=== PATIENT | female | born 1985 | race Caucasian/White ===

== ENCOUNTER → 2017-03-28 | Outpatient (CLI) | payer OTHER ==
[~2017-03-28] MED LIST: ACET50TA PO; ADVI200C5 PO; DOCU10CA PO; VITAPRTA PO
--- NOTE | 2017-03-29 10:00 | REP ---
Clinical: Dating and viability. Technique: Transabdominal first trimester obstetrical ultrasound with color Doppler evaluation. Findings: Single live early intrauterine is appreciated. Gestational sac with yolk sac and pole identified. [place]-rump length of 3.1 cm corresponds to 10 weeks 0 days gestational age with estimated date of delivery 10/24/2017 . heart rate equals 168 beats per minute. No gross abnormalities are identified. Impression: Single live early intrauterine at 10 weeks 0 days gestational age. Complete anatomical assessment should be performed and 19-20 weeks. Signed by Turner Lundberg MD 03/29/2017 09:51 A
== END ==
LOC: M RAD 10:25
PROVIDERS: ATTEND Family Medicine
DX: Z36.89 Encounter for other specified antenatal screening (principal); Z3A.10 10 weeks gestation of pregnancy

== ENCOUNTER → 2017-04-12 | Outpatient (REF) | payer OTHER ==
[2017-04-12 17:28] LABS: BASO % 0.3 % (0.0-1.0); EOS # 0.1 10^3/uL (0.0-0.50); EOS % 0.6 % (0.0-3.0); IMMATURE GRANULOCYTE % 0.6 % (0-0); LYMPH # 1.5 10^3/uL (1.5-4.5); LYMPH % 16.6 % (24.0-44.0); MEAN CORPUSCULAR HEMOGLOBIN 31.3 pg (27.0-33.0); MEAN CORPUSCULAR HGB CONC 33.3 g/dl (32.0-36.5); MEAN CORPUSCULAR VOLUME 93.9 fl (80.0-96.0); MONO # 0.5 10^3/uL (0.0-0.8); NEUTROPHILS % 76.9 % (36.0-66.0); PLATELET COUNT, AUTOMATED 212 10^3/uL (150-450); RED CELL DISTRIBUTION WIDTH 12.4 % (11.5-14.5)
[2017-04-12 18:31] LABS: GLUCOSE,RANDOM 102 MG/DL (LESS THAN 200)
[2017-04-13 10:36] LABS: HBsAg Prenatal NEGATIVE (NEGATIVE)
== END ==
LOC: M SFHCCLAY 10:31
PROVIDERS: ATTEND Family Medicine
DX: Z34.00 Encounter for supervision of normal first pregnancy, unspecified trimester (principal); Z3A.00 Weeks of gestation of pregnancy not specified

== ENCOUNTER → 2017-06-04 | Outpatient (CLI) | payer MEDICAID ==
--- NOTE | 2017-06-04 12:01 | REP ---
Obstetric sonography: History: Supervision of second trimester. For anatomy. Comparison study: March 28, 2017. Findings: Scanning through the gravid uterus demonstrates a viable single intrauterine gestation in a cephalic lie. motion is observed and heart rate is recorded at 144 beats per minute. A posterior grade 0 placenta is seen without evidence of previa or abruption. Amniotic fluid is subjectively normal. Closed cervical length is 5.8 cm viewed transabdominally. No extrauterine abnormality is observed. There has been appropriate interval growth. No anomaly is seen. The following anatomic structures are identified and felt to be sonographically unremarkable: cranium, choroid plexus, cavum, cerebellum and posterior fossa, face and profile, lungs, four-chamber heart with left and right ventricular outflow tract views, diaphragm, left-sided stomach, abdominal wall cord insertion, three-vessel umbilical cord, kidneys and bladder, spine, upper and lower extremities. Biometry chart: BPD 4.9 cm 20 weeks 6 days Head circumference 17.4 cm 20 weeks 0 days Abdominal circumference 15.1 cm 20 weeks 2 days Femur length 3.0 cm 19 weeks 2 days Humeral length 2.8 cm 19 weeks 0 days Cerebellar diameter 2.1 cm 20 weeks 0 days. HC/AC ratio normal 1.15. Cephalic index normal 0.80. Estimated weight 319 grams, 0 pounds 11 ounces, 57th percentile for 19 weeks 4 days. Impression: Viable single intrauterine gestation at 19 weeks 6 days by today's composite sonographic criteria. Expected gestational age estimate based on prior sonography is 19 weeks 5 days. EUNICE by prior sonography October 24, 2017. No anatomic abnormality. Signed by Jorge Thomas MD 06/04/2017 04:11 P
== END ==
LOC: M RAD 08:20
PROVIDERS: ATTEND Family Medicine
DX: Z34.92 Encounter for supervision of normal pregnancy, unspecified, second trimester (principal); Z3A.19 19 weeks gestation of pregnancy

== ENCOUNTER → 2017-07-12 | Outpatient (REF) | payer OTHER, MEDICAID ==
[2017-07-12 22:02] LABS: HEMATOCRIT 33.1 % (36.0-47.0); HEMOGLOBIN 10.8 g/dl (12.0-16.0)
[2017-07-12 22:21] LABS: GLUCOSE CHALLENGE TEST 1 HOUR 167 MG/DL (LESS THAN 140)
== END ==
LOC: M SFHCCLAY 12:13
DX: Z34.92 Encounter for supervision of normal pregnancy, unspecified, second trimester (principal)
CPT/HCPCS: 82950

== ENCOUNTER → 2017-07-30 | Outpatient (CLI) | payer MEDICAID ==
[2017-07-30 08:20] LABS: GLUCOSE, FASTING 74 MG/DL (LESS THAN 95)
[2017-07-30 08:37] LABS: 1 HR GLUCOSE 161 MG/DL (LESS THAN 180)
[2017-07-30 09:57] LABS: 2 HR GLUCOSE 101 MG/DL (LESS THAN 155)
[2017-07-30 10:46] LABS: 3 HR GLUCOSE 99 MG/DL (LESS THAN 140)
== END ==
LOC: M LAB 06:51
DX: Z36.89 Encounter for other specified antenatal screening (principal); Z3A.00 Weeks of gestation of pregnancy not specified
CPT/HCPCS: 82951

== ENCOUNTER → 2017-08-09 | Outpatient (REF) | payer OTHER, SELFPAY ==
[2017-08-10 10:36] LABS: HIV 1&2 SCREEN CENTAUR NEGATIVE (NEGATIVE)
== END ==
LOC: M LABDRAWC 16:49
DX: Z34.82 Encounter for supervision of other normal pregnancy, second trimester (principal); Z3A.00 Weeks of gestation of pregnancy not specified
CPT/HCPCS: 86803

== ENCOUNTER → 2017-08-24 | Outpatient (CLI) | payer OTHER, MEDICAID ==
[2017-08-24 14:01] LABS: ALBUMIN/GLOBULIN RATIO 0.86 (1.00-1.93); ALKALINE PHOSPHATASE 91 U/L (45-117); ALT/SGPT 14 U/L (12-78); AST/SGOT 20 U/L (7-37); BILIRUBIN,DIRECT < 0.1 MG/DL (0.0-0.2); BILIRUBIN,TOTAL 0.4 MG/DL (0.2-1.0); TOTAL PROTEIN 6.5 GM/DL (6.4-8.2)
[2017-08-27 14:11] LABS: BILE ACIDS FRACTIONATED 6.8 umol/L (4.7-24.5)
== END ==
LOC: M SMT 09:47
DX: Z23 Encounter for immunization (principal); R21 Rash and other nonspecific skin eruption
CPT/HCPCS: 80076

== ENCOUNTER → 2017-09-28 | Outpatient (REF) | payer OTHER | LOC: M LAB REF 17:13 | DX: Z34.83 Encounter for supervision of other normal pregnancy, third trimester (principal) ==

== ENCOUNTER 2017-10-31 11:57 | Inpatient (IN) | payer OTHER ==
[2017-10-31] MEDS ORDERED: LR 1,000 ML IV (12:19)
[2017-10-31] MEDS ORDERED: OXYTOCIN DRIP 30 UNITS in APPROPRIATE DILUENT 1 EA IV (12:30)
[2017-10-31] MEDS: miSOPROStol 50 MCG 1/2 TAB (S0191) PO (13:08)
[2017-10-31 13:30] LABS: HEMATOCRIT 33.8 % (36.0-47.0); HEMOGLOBIN 11.6 g/dl (12.0-15.5); MEAN CORPUSCULAR HGB CONC 34.3 g/dl (32.0-36.5); MEAN CORPUSCULAR VOLUME 93.4 fl (80.0-96.0); PLATELET COUNT, AUTOMATED 166 10^3/uL (150-450); RED BLOOD COUNT 3.62 10^6/uL (4.00-5.40); RED CELL DISTRIBUTION WIDTH 13.6 % (11.5-14.5); WHITE BLOOD COUNT 8.6 10^3/uL (4.0-10.0)
[2017-10-31] MEDS: LACTATED RINGER'S 1000 ML IV (14:18)
[2017-10-31] MEDS: LR 1,000 ML IV (18:12)
[2017-10-31] MEDS ORDERED: FENTANYL 2MCG/ML ROPIVACAINE 0.2% IN 0.9% NACL 200ML IVBAG As Ordered (18:46)
[2017-10-31] MEDS: OXYTOCIN DRIP 30 UNITS in APPROPRIATE DILUENT 1 EA IV ×2 (18:46→21:37)
[2017-10-31] MEDS ORDERED: diphenhydrAMINE INJ 50MG/ML VIAL (J1200) IV (19:00)
[2017-10-31] MEDS ORDERED: NALOXONE INJ 0.4 MG/1 ML VIAL (J2310) IV (19:00)
[2017-10-31] MEDS ORDERED: FENTANYL/ROPIVACAINE/NACL BAG 200 ML EPIDURAL (19:00)
[2017-10-31] MEDS ORDERED: ePHEDrine SULFATE 25 MG/5 ML(5MG/ML) SYRINGE IV (19:00)
[2017-10-31] MEDS ORDERED: EPIDURAL/PCA KEYS XX (19:00)
[2017-10-31] MEDS ORDERED: EPIDURAL COMMENT XX (19:00)
[2017-10-31] MEDS ORDERED: REFRIGERATOR IV KEYS XX (19:00)
[2017-10-31] MEDS ORDERED: ONDANSETRON 4MG/2ML VIAL (J2405) IV (19:00)
[2017-10-31] MEDS ORDERED: LACTATED RINGER'S 1000 ML IV (19:00)
[2017-10-31 20:19] LABS: CORD GAS ABE V -4.4; CORD GAS HCO3 V 20.8 MEQ/L; CORD GAS O2 SAT V 62.7 %; CORD GAS PCO2 V 38.6 mmHg; CORD GAS PH V 7.349 UNITS; CORD GAS SBC V 20.1 MEQ/L
[2017-10-31 20:21] LABS: CORD GAS ABE A -4.6; CORD GAS O2 SAT A 83.4 %; CORD GAS PCO2 A 40.6 mmHg; CORD GAS PH A 7.331 UNITS; CORD GAS PO2 A 43.3 mmHg; CORD GAS SBC A 20.4 MEQ/L; CORD GAS TCO2 A 22.2 MEQ/L
[2017-10-31] MEDS ORDERED: MOM 30ML SUSPENSION UDC PO (21:30)
[2017-10-31] MEDS ORDERED: ANUSOL HC CREAM 30GM TOP (21:30)
[2017-10-31] MEDS ORDERED: DOCUSATE SODIUM 100 MG CAP PO (21:30)
[2017-10-31] MEDS ORDERED: DIBUCAINE 1% OINTMENT 30GM TOP (21:30)
[2017-10-31] MEDS ORDERED: PROMETHAZINE 25 MG TAB PO (21:30)
[2017-10-31] MEDS ORDERED: METHYLERGONOVINE MALEATE 0.2 MG TAB PO (21:30)
[2017-10-31] MEDS: CALCIUM CARBONATE 500 MG CHEW U/D PO (21:37)
[2017-10-31] MEDS: ACETAMINOPHEN 500 MG TAB PO (21:38)
[2017-10-31] MEDS: IBUPROFEN 800 MG TAB PO (23:37)
[2017-11-01] MEDS: ACETAMINOPHEN 500 MG TAB PO ×2 (05:35→14:57)
[2017-11-01] MEDS: MEASLES,MUMPS,RUBELLA VACCINE INJ (MMR-II) (90707) SC (07:29)
[2017-11-01] MEDS: RHOGAM 300 MCG (1500 IU) INJ (J2790) IM (07:29)
[2017-11-01] MEDS: PRENATAL VITAMINS CHEWABLE TABLET PO (09:01)
[2017-11-01] MEDS: IBUPROFEN 800 MG TAB PO ×2 (09:02→20:20)
[2017-11-02] MEDS: PRENATAL VITAMINS CHEWABLE TABLET PO (08:04)
[2017-11-02] MEDS: IBUPROFEN 800 MG TAB PO (08:06)
== END 2017-11-02 16:30 | disposition home or self-care (01) | DRG 560 ==
LOC: M LDI 11:57 → M OBS 11-01 00:05
PROVIDERS: Obstetrics & Gynecology
PROC: 10D07Z6 Extraction of Products of Conception, Vacuum, Via Natural or Artificial Opening (ICD-10-PCS; principal; 2017-10-31)
PROC: 0HQ9XZZ Repair Perineum Skin, External Approach (ICD-10-PCS; 2017-10-31)
PROC: 3E0DXGC Introduction of Other Therapeutic Substance into Mouth and Pharynx, External Approach (ICD-10-PCS; 2017-10-31)
DX: O48.0 Post-term pregnancy (principal); O76 Abnormality in fetal heart rate and rhythm complicating labor and delivery; Z37.0 Single live birth; Z3A.40 40 weeks gestation of pregnancy; O70.0 First degree perineal laceration during delivery; O69.1XX0 Labor and delivery complicated by cord around neck, with compression, not applicable or unspecified

== ENCOUNTER → 2019-10-10 | Outpatient (REF) | payer OTHER ==
[~2019-10-10] MED LIST changes: -ACET50TA PO; +COLA100C5 PO; +FERR325T3 PO; +IBUP-1022 PO; +MAPA500T2 PO; +MOM30SS PO; +PEDICHW PO; +RANI-397 PO; +TUMS500C PO
[2019-10-10 13:20] LABS: HEMATOCRIT 38.6 % (36.0-47.0); HEMOGLOBIN 12.4 g/dl (12.0-15.5); MEAN CORPUSCULAR HGB CONC 32.1 g/dl (32.0-36.5); MEAN CORPUSCULAR VOLUME 96.5 fl (80.0-96.0); PLATELET COUNT, AUTOMATED 211 10^3/uL (150-450); WHITE BLOOD COUNT 5.4 10^3/uL (4.0-10.0)
== END ==
LOC: M PLALAB 11:15
PROVIDERS: ATTEND Advanced Practice Midwife
DX: R53.83 Other fatigue (principal)

== ENCOUNTER → 2019-11-28 | Outpatient (REF) | payer OTHER | LOC: M SFHCWAGY 11:06 | PROVIDERS: ATTEND Obstetrics & Gynecology | DX: R87.612 Low grade squamous intraepithelial lesion on cytologic smear of cervix (LGSIL) (principal) ==

== ENCOUNTER → 2020-10-15 | Outpatient (REF) | payer OTHER ==
[2020-10-15 12:19] LABS: HEMATOCRIT 33.3 % (36.0-47.0); HEMOGLOBIN 10.8 g/dl (12.0-15.5); MEAN CORPUSCULAR HEMOGLOBIN 31.3 pg (27.0-33.0); MEAN CORPUSCULAR HGB CONC 32.4 g/dl (32.0-36.5); MEAN CORPUSCULAR VOLUME 96.5 fl (80.0-96.0); PLATELET COUNT, AUTOMATED 185 10^3/uL (150-450); RED BLOOD COUNT 3.45 10^6/uL (4.00-5.40); WHITE BLOOD COUNT 6.9 10^3/uL (4.0-10.0)
[2020-10-15 13:34] LABS: HIV 1&2 SCREEN CENTAUR NEGATIVE (NEGATIVE)
== END ==
LOC: M PLALAB 08:59
PROVIDERS: ATTEND Advanced Practice Midwife
DX: O09.511 Supervision of elderly primigravida, first trimester (principal)

== ENCOUNTER → 2020-12-08 | Outpatient (CLI) | payer OTHER ==
--- NOTE | 2020-12-08 15:13 | REP ---
INDICATION: ANATOMY 18 WEEKS. COMPARISON: None. TECHNIQUE: Transabdominal obstetric sonography. FINDINGS: Scanning through the gravid uterus demonstrates a viable single intrauterine gestation in variable lie. motion is observed and heart rate is recorded at 152 beats per minute. A posterior placenta is seen, grade 0, without evidence of placenta previa. Closed cervical length is measured at 5.5 cm transabdominally. No extrauterine abnormality is observed. Amniotic fluid is subjectively normal. No abnormality is observed. The following anatomic structures are identified felt to be unremarkable: cranium and intracranial contents, face and profile nose and lips, lungs, diaphragm, left-sided stomach, abdominal wall cord insertion, urinary bladder, spine, right and left upper extremity, right lower extremity, left lower extremity, three-vessel cord. The following anatomic structures were less than optimally visualized due to position: Four-chamber heart with left and right ventricular outflow tract views. Biometry chart: BPD 4.1 cm, 18 weeks 4 days Head circumference 15.0 cm, 18 weeks 1 day Abdominal circumference 13.3 cm, 18 weeks 6 days Femur length 2.7 cm, 18 weeks 1 day Humeral length 2.6 cm, 18 weeks 1 day Cephalic index normal 0.77 HC AC ratio normal 1.13 Estimated weight 241 g, 0 lb 8 oz, 31st percentile for 18 weeks 5 days. IMPRESSION: Viable single intrauterine gestation at 18 weeks 2 days by today's composite sonographic criteria. EUNICE by today's sonography 09 May 2021. No complication identified. Four-chamber heart and outflow tract views less than optimally achieved. anatomy survey otherwise complete . <Electronically signed by Rober Thomas > 12/08/20 [id number]
== END ==
LOC: M RAD 12:06
PROVIDERS: ATTEND Advanced Practice Midwife
DX: Z36.89 Encounter for other specified antenatal screening (principal); Z3A.18 18 weeks gestation of pregnancy

== ENCOUNTER → 2021-01-20 | Outpatient (CLI) | payer OTHER ==
--- NOTE | 2021-01-20 08:52 | REP ---
INDICATION: F/U ANATOMY. COMPARISON: 12/08/2020. TECHNIQUE: Multiple ultrasonographic images of the gravid uterus. FINDINGS: The comparison study the four-chamber view of the heart and cardiac right and left outflow tracts were not optimally visualized. The anatomy was otherwise normal. On the study today the four-chamber view of the heart and right and left cardiac outflow tracts are optimally visualized and are unremarkable. The remainder of the anatomy previously was normal and is not repeated at this time. There is a single intrauterine gestation in a cephalic presentation. The placenta is posterior with grade 1 maturity. There is no previa. The umbilical cord inserts centrally on to the placenta. There is a three-vessel cord. heart rate is 142 beats per minute. Subjectively the amniotic fluid volume is increased. No amniotic fluid index measurement is performed. Cervix measures 4.1 cm length. The composite ultrasound as gestational age by today's ultrasound is 25 weeks 1 day with an EUNICE of 05/04/2021. Gestational age by the 1st ultrasound is 24 weeks 6 days with an EUNICE of 05/06/2021. Gestational age by LMP is 24 weeks 6 days with an EUNICE of 05/06/2021. Estimated weight is 781 g/1 lb, 11 oz. This is the 53rd percentile for 24 weeks 6 days. Neck Review of growth grafts indicates normal interval growth. IMPRESSION: The four-chamber view of the car heart in the cardiac right left ventricular outflow tracts are adequately visualized today and are unremarkable. There has been adequate interval growth. <Electronically signed by Costa Fan > 01/20/21 [id number]
== END ==
LOC: M WHC 06:57
PROVIDERS: ATTEND Advanced Practice Midwife
DX: Z34.92 Encounter for supervision of normal pregnancy, unspecified, second trimester (principal); Z3A.25 25 weeks gestation of pregnancy

== ENCOUNTER → 2021-01-28 | Outpatient (CLI) | payer OTHER ==
[2021-01-28 13:17] LABS: HEMATOCRIT 31.9 % (36.0-47.0); HEMOGLOBIN 10.4 g/dl (12.0-15.5); MEAN CORPUSCULAR HEMOGLOBIN 32.6 pg (27.0-33.0); MEAN CORPUSCULAR HGB CONC 32.6 g/dl (32.0-36.5); PLATELET COUNT, AUTOMATED 180 10^3/uL (150-450); RED BLOOD COUNT 3.19 10^6/uL (4.00-5.40)
== END ==
LOC: M PLALAB 09:33
PROVIDERS: ATTEND Advanced Practice Midwife
DX: Z34.92 Encounter for supervision of normal pregnancy, unspecified, second trimester (principal)

== ENCOUNTER → 2021-04-07 | Outpatient (REF) | payer OTHER | LOC: M SFHCWAGY 10:03 | PROVIDERS: ATTEND Obstetrics & Gynecology | DX: Z36.85 Encounter for antenatal screening for Streptococcus B (principal); Z3A.35 35 weeks gestation of pregnancy ==

== ENCOUNTER → 2021-04-29 | Outpatient (CLI) | payer OTHER ==
--- NOTE | 2021-04-29 11:25 | REP ---
INDICATION: GROWTH SIZE DATE DISCREPANCY. COMPARISON: 01/20/2021, 12/08/2020 TECHNIQUE: Size date discrepancy, evaluate growth. FINDINGS: Scanning demonstrates a viable single intrauterine gestation in a cephalic lie. motion is observed and heart rate is recorded at 125 beats per minute. A posterior, grade 2 placenta is seen without evidence of previa. Amniotic fluid is increased. The EVAN is 29.3 (7.2-22.6). The 4 pockets measure 8.7, 7.5, 8.1 and 5 cm. This represents polyhydramnios. Closed cervical length is measured at 5.8 cm transabdominally. No extrauterine abnormality is observed. There has been appropriate interval growth. No anatomic screening is requested or performed. Biometry chart: BPD 9.8 cm; 40 weeks 0 days Head circumference 34.6 cm; 40 weeks 0 days Abdominal circumference 36 cm; 30 weeks 6 days Femur length 7.5 cm; 38 weeks 1 days Humeral length 6.8 cm; 39 weeks 2 days HC/AC ratio normal 0.96 Cephalic index normal 0.81 Estimated weight 3829 grams, 8 pounds 7 ounces, 82 percentile for 39 weeks 0 days. IMPRESSION: Viable single intrauterine gestation at 39 weeks 3 days by today's composite sonographic criteria. Expected gestational age estimate based on prior sonography is 39 weeks is 0 days. EUNICE by prior sonography 05/06/2021. There is polyhydramnios with EVAN 29.3 (7.2-22.6 normal) largest fluid pocket 8.7 cm. <Electronically signed by Quentin Fox > 04/29/21 [id number]
== END ==
LOC: M WHC 09:57
PROVIDERS: ATTEND Advanced Practice Midwife
DX: Z36.4 Encounter for antenatal screening for fetal growth retardation (principal); O26.843 Uterine size-date discrepancy, third trimester; Z3A.39 39 weeks gestation of pregnancy

== ENCOUNTER 2021-05-02 00:05 | Inpatient (IN) | payer OTHER ==
[2021-05-02] VITALS (9 sets, daily range): BP systolic 97–111; BP diastolic 53–62
[~2021-05-02] VITALS: Ht 170.2 cm; Wt 78.2 kg
[2021-05-02] MEDS ORDERED: LACTATED RINGER'S 1000 ML IV STA (00:43)
[2021-05-02] MEDS ORDERED: LR 1,000 ML IV SCH (00:45)
--- OUTSIDE RECORDS SUMMARY | 2021-05-02 00:50 | CCD ---
Author Author [facility] Organization [facility] Address Unknown Phone Unavailable Care Team Providers Care Application Support Lead Name Role Phone Symonelandon Nancy Unavailable PROBLEMS Type Condition ICD9-CM Code [id number] Code Onset Dates Condition S tatus W/U Status Risk SNOMED Code Notes Problem Depression F32.9 Active confirmed 32640400 Problem Supervision of other normal Z34.80 Ac tive confirm 870786252 Problem Amenorrhea N91.2 Active confirmed 20412022 Problem Sciatica of left side M54.32 Active confirmed 59174390 Problem Sinusitis, unspecified chronicity, unspecified location J32.9 Active confirmed [id number] ALLERGIES No Known Allergies ENCOUNTERS from 1983 to 2021-03-08 Encounter Location Date Provider Diagnosis [facility] [address] [place] [address] [place] [address] Feb, Nancy Sauceda IMMUNIZATIONS Vaccine Route Administration Date Status Influenza Pharmacy Given Unknown Apr 26, 2020 Adminis tered TDAP 0.5mL (Boostrix) Unknown September 06, 2017 Administer ed Influenza 6mo & up Fluzone IM Intramuscular May 01, 2017 Admi nistered Influenza 6mo & up Fluzone IM Intramuscular Apr 01, 2015 Admi nistered SOCIAL HISTORY Tobacco Use: Social History Observation Description Date Details (start date - stop date) Former Smoker Sex Assigned At : Social History Observation Description Sex Assigned At Unknown Education: Question Answer Notes Level of Education: Not Finished College Language: Question Answer Notes Languages spoken: Bulgarian Sikh: Question Answer Notes Sikh 33 None Tobacco Use: Question Answer Notes Are you a: former smoker How long has it been since you last smoked? 5-10 years REASON FOR REFERRAL No Information VITAL SIGNS No information MEDICATIONS Medication SIG (Take, Route, Frequency, Duration) Notes Start Da te End Date Status DHA Complete 200 MG 1 capsule with a meal Orally Once a day Not-Taking busPIRone HCl 10 MG 1 tablet Orally Twice a day for 90 days Jul, Not-Taking Iron 325 (65 Fe) MG 1 tablet Orally Once a day Active busPIRone HCl 5 MG 1 tablet Orally Twice a day for 30 days Sep, Not-Taking Ferrous Gluconate 324 (38 Fe) MG 1 tablet with water o r juice between meals Orally Once a day for 30 day(s) Jan, Active Vitamin - Orally Active Fiber Complete - Orally Active Effexor XR 75 MG 1 capsule with food Orally Once a day for 90 da ys Jul, Not-Taking PROCEDURES No Information RESULTS No Results REASON FOR VISIT CONCHITA APPT MEDICAL (GENERAL) HISTORY Type Description Date Medical History Anemia Medical History Hx of asthma Medical History Hx of post depression Surgical History Colposcopy 2019 Hospitalization History Pneumonia 4yo Hospitalization History childbirth Goals Section No Information Health Concerns No Information MEDICAL EQUIPMENT No Information MENTAL STATUS No Information FUNCTIONAL STATUS No Information ASSESSMENTS No Information PLAN OF TREATMENT Next Appt Details Provider Name:Nancy Sauceda, 2021-02-17 2 09:20:00 AM, [address] [facility], , [place], [address], Insurance Providers Payer Name Payer Address Payer Phone Insured Name Patient Relati onship to Insured Coverage Start Date Coverage End Date [facility] [employer] CLAIMS DEPT [address] [facility] [phone] [place]
--- OUTSIDE RECORDS SUMMARY | 2021-05-02 00:50 | CCD ---
Author Author [facility] Organization [facility] Address Unknown Phone Unavailable Care Team Providers Care Machine Umbrella Tipper Name Role Phone Jasmin Carcamo Unavailable PROBLEMS Type Condition ICD9-CM Code [id number] Code Onset Dates Condition S tatus W/U Status Risk SNOMED Code Notes Problem Depression F32.9 Active confirmed 09056380 Problem Supervision of other normal Z34.80 Ac tive confirm 529655116 Problem Amenorrhea N91.2 Active confirmed 64906136 Problem Sciatica of left side M54.32 Active confirmed 90963512 Problem Sinusitis, unspecified chronicity, unspecified location J32.9 Active confirmed 32423054 ALLERGIES No Known Allergies ENCOUNTERS from 1983 to 2021-02-23 Encounter Location Date Provider Diagnosis [facility] [address] [place] [address] [place] [address] 07 Feb, 2021 Jasmin Carcamo Elderly multigravida in third trimester O09.523 and 29 weeks gestation of Z3A.29 IMMUNIZATIONS Vaccine Route Administration Date Status Influenza [...] College Language: Question Answer Notes Languages spoken: Central African Sabianist: Question Answer Notes Sabianist 33 None Tobacco Use: Question Answer Notes Are you a: former smoker How long has it been since you last smoked? 5-10 years REASON FOR REFERRAL No Information VITAL SIGNS Weight 162.8 lbs Feb, Weight-kg 73.84 kg Feb, Height 67 in Feb, BMI 25.498 kg/m2 Feb, Blood pressure systolic 114 mm Hg Feb, Blood pressure diastolic 66 mm Hg Feb, MEDICATIONS Medication SIG (Take, Route, Frequency, Duration) [...] Information RESULTS No Results REASON FOR VISIT 4WK PN MEDICAL (GENERAL) HISTORY Type Description Date Medical History Anemia Medical History Hx of asthma Medical History Hx of post depression Surgical History Colposcopy 2019 Hospitalization History Pneumonia 4yo Hospitalization History childbirth Goals Section No Information Health Concerns No Information MEDICAL EQUIPMENT No Information MENTAL STATUS No Information FUNCTIONAL STATUS No Information ASSESSMENTS Encounter Date Diagnosis Assessment Notes Treatment Notes Treatm ent Clinical Notes Feb, Elderly multigravida in third trimester (ICD-10 - O09.523) Feb, 29 weeks gestation of (ICD-10 - Z3A.29 ) PLAN OF TREATMENT Next Appt Details 2 Weeks Reason: Provider Name:Jasmin Carcamo, 2021-03-08 0 9:40:00 AM, [address] [facility], , [place], [address], Insurance Providers Payer Name Payer Address Payer Phone Insured Name Patient Relati onship to Insured Coverage Start Date Coverage End Date [facility] CLAIMS DEPT [address] [facility] [phone] [place]
--- OUTSIDE RECORDS SUMMARY | 2021-05-02 00:50 | CCD ---
Author Author [facility] Organization [facility] Address Unknown Phone Unavailable Care Team Providers Care Foiling Machine Operator Name Role Phone Komal Nancy Unavailable PROBLEMS Type Condition ICD9-CM Code [id number] Code Onset Dates Condition S tatus W/U Status Risk SNOMED Code Notes Problem Depression F32.9 Active confirmed 30426032 Problem Supervision of other normal Z34.80 Ac tive confirm 852970326 Problem Amenorrhea N91.2 Active confirmed 32619978 Problem Sciatica of left side M54.32 Active confirmed 72295244 Problem Sinusitis, unspecified chronicity, unspecified location J32.9 Active confirmed 36550571 ALLERGIES No Known Allergies ENCOUNTERS from 1983 to 2021-03-25 Encounter Location Date Provider Diagnosis [facility] [address] [place] [address] [place] [address] Mar, Nancy Sauceda Advanced maternal ag e in multigravida O09.529 and 33 weeks gestation of Z3A.33 IMMUNIZATIONS Vaccine Route Administration Date Status TDAP 0.5mL Boostrix IM Intramuscular Mar 09, 2021 Administere d Influenza Pharmacy Given Unknown Apr 26, 2020 [...] College Language: Question Answer Notes Languages spoken: Vietnamese Worship: Question Answer Notes Worship 33 None Tobacco Use: Question Answer Notes Are you a: former smoker How long has it been since you last smoked? 5-10 years REASON FOR REFERRAL No Information VITAL SIGNS Weight 164.4 lbs Mar, Weight-kg 74.57 kg Mar, Height 67 in Mar, BMI 25.749 kg/m2 Mar, Blood pressure systolic 100 mm Hg Mar, Blood pressure diastolic 60 mm Hg Mar, MEDICATIONS Medication SIG (Take, Route, Frequency, Duration) Notes Start Da te End Date Status Fiber Complete - Orally Active busPIRone HCl 5 MG 1 tablet Orally Twice a day for 30 days Sep, Not-Taking Effexor XR 75 MG 1 capsule with food Orally Once a day for 90 da ys Jul, Not-Taking Iron 325 (65 Fe) MG 1 tablet Orally Once a day Duplicate Not-Taking Vitamin - Orally Active Ferrous Gluconate 324 (38 Fe) MG 1 tablet with water o r juice between meals Orally Once a day for 30 day(s) Jan, Active busPIRone HCl 10 MG 1 tablet Orally Twice a day for 90 days Jul, Not-Taking DHA Complete 200 MG 1 capsule with a meal Orally Once a day Not-Taking PROCEDURES No Information RESULTS No Results REASON FOR VISIT 2 wk pn MEDICAL (GENERAL) HISTORY Type Description Date Medical History Anemia Medical History Hx of asthma Medical History Hx of post depression Surgical History Colposcopy 2019 Hospitalization History Pneumonia 4yo Hospitalization History childbirth Goals Section No Information Health Concerns No Information MEDICAL EQUIPMENT No Information MENTAL STATUS No Information FUNCTIONAL STATUS No Information ASSESSMENTS Encounter Date Diagnosis Assessment Notes Treatment Notes Treatm ent Clinical Notes Mar, 33 weeks gestation of (ICD-10 - Z3A.33 ) Mar, Advanced maternal age in multigravida (ICD-10 - O09.529) PLAN OF TREATMENT Next Appt Details 2-3 weeks Reason: Provider Name:Nancy Sauceda, 2020-10-2 0 08:40:00 AM, [address] [facility], , [place], [address], Provider Name:Jasmin Avila Carlos Alberto, 2021-04-19 1 0:00:00 AM, [address] [facility], , [place], [address], Follow Up:2-3 weeksPrenatal Insurance Providers Payer Name Payer Address Payer Phone Insured Name Patient Relati onship to Insured Coverage Start Date Coverage End Date [facility]POR[facility] CLAIMS DEPT [address] [facility] [phone] K[place]VER REESE
--- OUTSIDE RECORDS SUMMARY | 2021-05-02 00:50 | CCD ---
Author Author [facility] Organization [facility] Address Unknown Phone Unavailable Care Team Providers Care Harbor Tug Captain Name Role Phone Carlos AlbertoJasmin Unavailable PROBLEMS Type Condition ICD9-CM Code [id number] Code Onset Dates Condition S tatus W/U Status Risk SNOMED Code Notes Problem Depression F32.9 Active confirmed 63520861 Problem Supervision of other normal Z34.80 Ac tive confirm 228617509 Problem Amenorrhea N91.2 Active confirmed 93850350 Problem Sciatica of left side M54.32 Active confirmed 40771806 Problem Sinusitis, unspecified chronicity, unspecified location J32.9 Active confirmed 59158807 ALLERGIES No Known Allergies ENCOUNTERS from 1983 to 2021-02-01 Encounter Location Date Provider Diagnosis [facility] [address] [place] [address] [place] [address] 16 Jan, 2021 Jasmin Carcamo IMMUNIZATIONS Vaccine Route Administration Date Status Influenza [...] College Language: Question Answer Notes Languages spoken: Panamanian Restorationist: Question Answer Notes Restorationist 33 None Tobacco Use: Question Answer Notes Are you a: former smoker How long has it been since you last smoked? 5-10 years REASON FOR REFERRAL No Information VITAL SIGNS No information MEDICATIONS Medication SIG (Take, Route, Frequency, Duration) Notes Start Da te End Date Status busPIRone HCl 5 MG 1 tablet Orally Twice a day for 30 days Sep, Not-Taking Vitamin - Orally Active Iron 325 (65 Fe) MG 1 tablet Orally Once a day Active Fiber Complete - Orally Active busPIRone HCl 10 MG 1 tablet Orally Twice a day for 90 days Jul, Not-Taking Effexor XR 75 MG 1 capsule with food Orally Once a day for 90 da ys Jul, Not-Taking Ferrous Gluconate 324 (38 Fe) MG 1 tablet with water o r juice between meals Orally Once a day for 30 day(s) Jan, Active DHA Complete 200 MG 1 capsule with a meal Orally Once a day Not-Taking PROCEDURES No Information RESULTS No Results REASON FOR VISIT No Information MEDICAL (GENERAL) HISTORY Type Description Date Medical History Anemia Medical History Hx of asthma Medical History Hx of post depression Surgical History Colposcopy 2019 Hospitalization History Pneumonia 4yo Hospitalization History childbirth Goals Section No Information Health Concerns No Information MEDICAL EQUIPMENT No Information MENTAL STATUS No Information FUNCTIONAL STATUS No Information ASSESSMENTS No Information PLAN OF TREATMENT Medication Medication Name Sig Start Date Stop Date Ferrous Gluconate 324 (38 Fe) MG 1 tablet with water o r juice between meals Orally Once a day for 30 day(s) Jan, Next Appt Details Provider Name:Jasmin Carcamo, 2021-02-22 0 3:00:00 PM, [address] [facility], , [place], [address], Insurance Providers Payer Name Payer Address Payer Phone Insured Name Patient Relati onship to Insured Coverage Start Date Coverage End Date [facility] CLAIMS DEPT [address] [place] [phone] KLEVER REESE
--- OUTSIDE RECORDS SUMMARY | 2021-05-02 00:50 | CCD ---
Author Author [facility] Organization [facility] Address Unknown Phone Unavailable Care Team Providers Care Negative Restorer Name Role Phone Nancy Sauceda Unavailable PROBLEMS Type Condition ICD9-CM Code LVI78-UQ Code Onset Dates Condition S tatus W/U Status Risk SNOMED Code Notes Problem Depression F32.9 Active confirmed 76205932 Problem Supervision of other normal Z34.80 Ac tive confirm 807012371 Problem Amenorrhea N91.2 Active confirmed 40444038 Problem Sciatica of left side M54.32 Active confirmed 78126397 Problem Sinusitis, unspecified chronicity, unspecified location J32.9 Active confirmed 76532684 ALLERGIES No Known Allergies ENCOUNTERS from 1983 to 2021-04-13 Encounter Location Date Provider Diagnosis [facility] [address] [place] [address] [place] [address] Mar, Nancy Sauceda Elderly multigravida , currently in third trimester O09.523 ; 35 weeks gestation of Z3A.35 and Encounter for immunization Z23 IMMUNIZATIONS Vaccine Route Administration Date Status TDAP 0.5mL Boostrix IM Intramuscular Mar 09, 2021 Administere d Influenza Pharmacy Given Unknown Apr 26, 2020 Adminis tered TDAP 0.5mL (Boostrix) Unknown September 06, 2017 Administer ed Influenza 6mo & up Fluzone IM Intramuscular Apr 06, 2021 Admi nistered Influenza 6mo & up Fluzone [...] College Language: Question Answer Notes Languages spoken: Syriac Mormonism: Question Answer Notes Mormonism 33 None Tobacco Use: Question Answer Notes Are you a: former smoker How long has it been since you last smoked? 5-10 years REASON FOR REFERRAL No Information VITAL SIGNS Weight 165 lbs Mar, Weight-kg 74.84 kg Mar, Height 67 in Mar, BMI 25.843 kg/m2 Mar, Blood pressure systolic 110 mm Hg Mar, Blood pressure diastolic 56 mm Hg Mar, MEDICATIONS Medication SIG (Take, Route, Frequency, Duration) Notes Start Da te End Date Status Ferrous Gluconate 324 (38 Fe) MG 1 tablet with water o r juice between meals Orally Once a day for 30 day(s) Jan, Active busPIRone HCl 10 MG 1 tablet Orally Twice a day for 90 days Jul, Not-Taking Fiber Complete - Orally Active Effexor XR 75 MG 1 capsule with food Orally Once a day for 90 da ys Jul, Not-Taking Iron 325 (65 Fe) MG 1 tablet Orally Once a day Duplicate Not-Taking DHA Complete 200 MG 1 capsule with a meal Orally Once a day Not-Taking Vitamin - Orally Active busPIRone HCl 5 MG 1 tablet Orally Twice a day for 30 days Sep, Not-Taking PROCEDURES from 1983 to 2021-04-13 Procedure Date Ordered Result Body Site Imm: Fluzone 6mo & older 0.5mL IM Influenza 2021-04-06 N/A RESULTS Component Value Reference Range GROUP B STREP CULTURE Reviewed date:04/10/2021 08:55:40 Interpretation: Performing Lab:[facility], [facility] [address] [address] , ,[place] [address] REASON FOR VISIT 2 wk pn MEDICAL [...] Treatment Notes Treatm ent Clinical Notes Mar, Elderly multigravida, jose chaudhari in third trimester (ICD-10 - O09.523) Mar, 35 weeks gestation of (ICD-10 - Z3A.35 ) Mar, Encounter for immunization (ICD-10 - Z23) PLAN OF TREATMENT Next Appt Details 2 Weeks Reason: Provider Name:Jasmin Carcamo, 2021-04-19 1 0:00:00 AM, [address] [place] [address], , [place], [address], Provider Name:My Everett, 2021-04-28 10:40:00 AM, [address] [place] [address], , [place], [address], Provider Name:Nancy Sauceda, 2021-04-18 6 10:20:00 AM, [address] [place] [address], , [place], [address], Follow Up:2 WeeksPrenatal Insurance Providers Payer Name Payer Address Payer Phone Insured Name Patient Relati onship to Insured Coverage Start Date Coverage End Date [facility]POR[facility] CLAIMS DEPT [address] [facility] [phone] K[place]VER [place]ESE
--- OUTSIDE RECORDS SUMMARY | 2021-05-02 00:50 | CCD ---
Author Author [facility] Organization [facility] Address Unknown Phone Unavailable Care Team Providers Care House Nurse Name Role Phone Carlos Alberto Jasmin Unavailable PROBLEMS Type Condition ICD9-CM Code [id number] Code Onset Dates Condition S tatus W/U Status Risk SNOMED Code Notes Problem Depression F32.9 Active confirmed 49637310 Problem Supervision of other normal Z34.80 Ac tive confirm 052327458 Problem Amenorrhea N91.2 Active confirmed 97484806 Problem Sciatica of left side M54.32 Active confirmed 51389013 Problem Sinusitis, unspecified chronicity, unspecified location J32.9 Active confirmed [id number] ALLERGIES No Known Allergies ENCOUNTERS from 1983 to 2021-04-20 Encounter Location Date Provider Diagnosis [facility] [address] [place] [address] [place] [address] 02 Apr, 2021 Jasmin Carcamo Advanced maternal ag e in multigravida O09.529 IMMUNIZATIONS Vaccine Route Administration Date Status TDAP [...] College Language: Question Answer Notes Languages spoken: Guamanian Yazdanism: Question Answer Notes Yazdanism 33 None Tobacco Use: Question Answer Notes Are you a: former smoker How long has it been since you last smoked? 5-10 years REASON FOR REFERRAL No Information VITAL SIGNS Weight 167.8 lbs Apr, Weight-kg 76.11 kg Apr, Height 67 in Apr, BMI 26.281 kg/m2 Apr, Blood pressure systolic 102 mm Hg Apr, Blood pressure diastolic 68 mm Hg Apr, MEDICATIONS Medication SIG (Take, Route, Frequency, Duration) Notes Start Da te End Date Status Ferrous Gluconate 324 (38 Fe) MG 1 tablet with water o r juice between meals Orally Once a day for 30 day(s) Jan, Active DHA Complete 200 MG 1 capsule with a meal Orally Once a day Not-Taking busPIRone HCl 5 MG 1 tablet Orally Twice a day for 30 days Sep, Not-Taking Effexor XR 75 MG 1 capsule with food Orally Once a day for 90 da ys Jul, Not-Taking Fiber Complete - Orally Active Vitamin - Orally Active Iron 325 (65 Fe) MG 1 tablet Orally Once a day Duplicate Not-Taking busPIRone HCl 10 MG 1 tablet Orally Twice a day for 90 days Jul, Not-Taking PROCEDURES No Information RESULTS No [...] Notes Treatment Notes Treatm ent Clinical Notes Apr, Advanced maternal age in multigravida (ICD-10 - O09.529) PLAN OF TREATMENT Next Appt Details 1 Week Reason: Provider Name:My Everett, 2021-04-28 10:40:00 AM, [address] [facility], , [place], [address], Provider Name:Nancy Sauceda, 2021-04-1 6 10:20:00 AM, [address] [facility], , [place], [address], Insurance Providers Payer Name Payer Address Payer Phone Insured Name Patient Relati onship to Insured Coverage Start Date Coverage End Date [facility] [employer] CLAIMS DEPT [address] [facility] [phone] [place]
--- OUTSIDE RECORDS SUMMARY | 2021-05-02 00:50 | CCD ---
Author Author [facility] Organization [facility] Address Unknown Phone Unavailable Care Team Providers Care Animal Laboratory Helper Name Role Phone ChrisAguila Moralesy Unavailable PROBLEMS Type Condition ICD9-CM Code [id number] Code Onset Dates Condition S tatus W/U Status Risk SNOMED Code Notes Problem Depression F32.9 Active confirmed 49206189 Problem Supervision of other normal Z34.80 Ac tive confirm 559401765 Problem Amenorrhea N91.2 Active confirmed 00525337 Problem Sciatica of left side M54.32 Active confirmed 72775846 Problem Sinusitis, unspecified chronicity, unspecified location J32.9 Active confirmed 46412007 ALLERGIES No Known Allergies ENCOUNTERS from 1983 to 2021-03-23 Encounter Location Date Provider Diagnosis [facility] [address] [place] [address] [place] [address] Feb, Nancy Sauceda 31 weeks gestation o f Z3A.31 ; Elderly multigravida, currently in third trimester O09.523 and Encounter for immunization Z23 IMMUNIZATIONS Vaccine [...] College Language: Question Answer Notes Languages spoken: Bahraini Tenriism: Question Answer Notes Tenriism 33 None Tobacco Use: Question Answer Notes Are you a: former smoker How long has it been since you last smoked? 5-10 years REASON FOR REFERRAL No Information VITAL SIGNS Weight 161 lbs Feb, Weight-kg 73.03 kg Feb, Height 67 in Feb, BMI 25.21 kg/m2 Feb, Blood pressure systolic 104 mm Hg Feb, Blood pressure diastolic 58 mm Hg Feb, MEDICATIONS Medication SIG (Take, [...] meal Orally Once a day Not-Taking PROCEDURES from 1983 to 2021-03-23 Procedure Date Ordered Result Body Site Imm: Boostrix 0.5mL IM TDAP 2021-03-09 N/A RESULTS No Results REASON FOR VISIT 2 WK PN MEDICAL (GENERAL) HISTORY Type Description Date [...] Treatment Notes Treatm ent Clinical Notes Feb, 31 weeks gestation of (ICD-10 - Z3A.31 ) Feb, Elderly multigravida, curren tly in third trimester (ICD-10 - O09.523) Feb, Encounter for immunization (ICD-10 - Z23) PLAN OF TREATMENT Next Appt Details 2 Weeks Reason: Provider Name:Nancy Sauceda, 2021-03-19 0 08:40:00 AM, [address] [facility], , [place], [address], Provider Name:Jasmin Carcamo, 2021-04-19 1 0:00:00 AM, [address] [facility], , [place], [address], Follow Up:2 WeeksPrenatal Insurance Providers Payer Name Payer Address Payer Phone Insured Name Patient Relati onship to Insured Coverage Start Date Coverage End Date [facility] [employer]POR[facility] CLAIMS DEPT [address] [facility] [phone] [place]
--- OUTSIDE RECORDS SUMMARY | 2021-05-02 00:51 | CCD ---
Author Author [facility] Address Unknown Phone Unavailable Support Name Relationship Address Phone DELFINA MACHUCA Next Of Kin [address] [place] [address] UE Next Of Kin Unknown Unavailable MARGI SPIRITS Next Of Kin [address] [place] [address] Vivian REESE Next Of Kin [address] [place] [address] TILTED KILT Next Of Kin [address] [place] [address] Unavailable BRENNAN COMBS Next Of Kin [address] [place] [address] Jese Reese [address] [place] [address] Re-disclosure Warning The records that you are about to access may contain information from federally-assisted alcohol or drug abuse programs. If such information is present, then the following federally mandated warning applies: This information has been disclosed to you from records protected by federal confidentiality rules (42 CFR part 2). The federal rules prohibit you from making any further disclosure of this information unless further disclosure is expressly permitted by the written consent of the person to whom it pertains or as otherwise permitted by 42 CFR part 2. A general authorization for the release of medical or other information is NOT sufficient for this purpose. The Federal rules restrict any use of the information to criminally investigate or prosecute any alcohol or drug abuse patient.The records that you are about to access may contain highly sensitive health information, the redisclosure of which is protected by Article 27-F of the [facility] Public Health law. If you continue you may have access to information: Regarding HIV / AIDS; Provided by facilities licensed or operated by the [facility] Office of Mental Health; or Provided by the [facility] Office for People With Developmental Disabilities. If such information is present, then the following [facility] mandated warning applies: This information has been disclosed to you from confidential records which are protected by state law. State law prohibits you from making any further disclosure of this information without the specific written consent of the person to whom it pertains, or as otherwise permitted by law. Any unauthorized further disclosure in violation of state law may result in a fine or snf sentence or both. A general authorization for the release of medical or other information is NOT sufficient authorization for further disc losure. Family History Family Member Name Family Member Gender Family Member Status Date o f Status Description Data Source(s) Unknown Unknown Problem MEDENT ([facility], ) Unknown Unknown Problem MEDENT ([facility], ) Unknown Unknown Problem MEDENT ([facility], ) Encounters Encounter Providers Location Date Indications Data Source(s ) ( ESTOB) [facility] [address] [place] [address] 04/19/2021 12:00:00 AM EDT eCW1 ([facility]) ( ESTOB) [facility] Est OB [address] [place] [address] 04/06/2021 12:00:00 AM EDT eCW1 ([facility]) ( ESTOB) [facility] Est OB [address] [place] [address] 03/23/2021 12:00:00 AM EDT eCW1 ([facility]) ( ESTOB) [facility] Est OB [address] [place] [address] 03/09/2021 12:00:00 AM EDT eCW1 ([facility]) Unknown [address] [facility] [address] 03/08/2021 12:00:00 AM EDT eCW1 ([facility]) ( ESTOB) [facility] Est OB [address] [place] [address] 02/22/2021 12:00:00 AM EDT eCW1 ([facility]) Unknown [address] [facility] [address] 01/31/2021 12:00:00 AM EDT eCW1 ([facility]) (WC ESTOB) [facility] [address] [place] [address] 01/25/2021 12:00:00 AM EDT eCW1 ([facility]) (WC ESTOB) [facility] [address] [place] [address] 12/28/2020 12:00:00 AM EDT eCW1 ([facility]) (WC ESTOB) [facility] [address] [place] [address] 11/29/2020 12:00:00 AM EDT eCW1 ([facility]) (WC ESTOB) [facility] [address] [place] [address] 10/25/2020 12:00:00 AM EDT eCW1 ([facility]) [place] [address] [facility] [address] 09/27/2020 12:00:00 AM EDT eCW1 ([facility]) ( ESTOB) [facility] [address] [place] [address] 09/27/2020 12:00:00 AM EDT eCW1 ([facility]) [place] [address] [facility] [address] 09/01/2020 12:00:00 AM EDT eCW1 ([facility]) [place] [address] [facility] [address] 07/30/2020 12:00:00 AM EST eCW1 ([facility]) [place] [address] [facility] [address] 07/26/2020 12:00:00 AM EST eCW1 ([facility]) Immunizations Vaccine Date Status Description Data Source(s) New in 2011. IIV4 04/06/2021 09:58:00 AM EDT completed eCW1 ([facility]) New in 2011. IIV4 04/06/2021 09:58:00 AM EDT completed eCW1 ([facility]) Tdap 03/09/2021 09:45:00 AM EDT completed e CW1 ([facility]) Tdap 03/09/2021 09:45:00 AM EDT completed e CW1 ([facility]) Tdap 03/09/2021 09:45:00 AM EDT completed e CW1 ([facility]) Tdap 03/09/2021 09:45:00 AM EDT completed e CW1 ([facility]) COVID-19 VACCINE Pfizer 01/22/2021 12:00:00 AM EDT completed [facility] Vaccine Series Complete: YESThis Data wa s Submitted to [facility] Via [employer]. COVID-19 VACC, MRNA(PFIZER)/PF 01/01/2021 12:00:00 AM EDT completed [facility] COVID-19 VACCINE Pfizer 01/01/2021 12:00:00 AM EDT completed [facility] Vaccine Series Complete: NOThis Data was Submitted to [facility] [employer]. IIV3. This is one of two codes replacing CVX 15, which is being retired. 04/26/2020 08:48:00 AM EST completed eCW1 ([facility]) IIV3. This is one of two codes replacing CVX 15, which is being retired. 04/26/2020 08:48:00 AM EST completed eCW1 ([facility]) IIV3. This is one of two codes replacing CVX 15, which is being retired. 04/26/2020 08:48:00 AM EST completed eCW1 ([facility]) IIV3. This is one of two codes replacing CVX 15, which is being retired. 04/26/2020 08:48:00 AM EST completed eCW1 ([facility]) IIV3. This is one of two codes replacing CVX 15, which is being retired. 04/26/2020 08:48:00 AM EST completed eCW1 ([facility]) IIV3. This is one of two codes replacing CVX 15, which is being retired. 04/26/2020 08:48:00 AM EST completed eCW1 ([facility]) IIV3. This is one of two codes replacing CVX 15, which is being retired. 04/26/2020 08:48:00 AM EST completed eCW1 ([facility]) IIV3. This is one of two codes replacing CVX 15, which is being retired. 04/26/2020 08:48:00 AM EST completed eCW1 ([facility]) IIV3. This is one of two codes replacing CVX 15, which is being retired. 04/26/2020 08:48:00 AM EST completed eCW1 ([facility]) IIV3. This is one of two codes replacing CVX 15, which is being retired. 04/26/2020 08:48:00 AM EST completed eCW1 ([facility]) IIV3. This is one of two codes replacing CVX 15, which is being retired. 04/26/2020 08:48:00 AM EST completed eCW1 ([facility]) IIV3. This is one of two codes replacing CVX 15, which is being retired. 04/26/2020 08:48:00 AM EST completed eCW1 ([facility]) IIV3. This is one of two codes replacing CVX 15, which is being retired. 04/26/2020 08:48:00 AM EST completed eCW1 ([facility]) IIV3. This is one of two codes replacing CVX 15, which is being retired. 04/26/2020 08:48:00 AM EST completed eCW1 ([facility]) IIV3. This is one of two codes replacing CVX 15, which is being retired. 04/26/2020 08:48:00 AM EST completed eCW1 ([facility]) IIV3. This is one of two codes replacing CVX 15, which is being retired. 04/26/2020 08:48:00 AM EST completed eCW1 ([facility]) IIV3. This is one of two codes replacing CVX 15, which is being retired. 04/26/2020 08:48:00 AM EST completed W1 ([facility]) INFLUENZA VIRUS VACCINE QUADRIVALENT 2019- (6 MOS AN D UP) 04/25/2020 12:00:00 AM EST completed [facility] Medications Medication Brand Name Start Date Product Form Dose Route Admi nistrative Instructions Pharmacy Instructions Status Indications Reaction Description Data Source(s) 324 mg (38 mg iron) 01/31/2021 12:00:00 AM EDT tablet 30 TAKE ONE TABLET BY MOUTH EVERY DAY WITH WATER OR JUICE BETWEEN MEALS TAKE ONE TABLET BY MOUTH EVERY DAY WITH WATER OR JUICE BETWEEN MEALS SOLD: 04/10/2021 [facility] ferrous gluconate 324 MG Oral Tablet Ferrous Gluconate 324 (38 Fe) MG Ferrous Gluconate 324 (38 Fe) MG 01/31/2021 12:00:00 AM EDT active Ferrous Gluconate 324 (38 Fe) MG eCW1 ([facility]) 324 mg (38 mg iron) 01/31/2021 12:00:00 AM EDT tablet 30 TAKE ONE TABLET BY MOUTH EVERY DAY WITH WATER OR JUICE BETWEEN MEALS TAKE ONE TABLET BY MOUTH EVERY DAY WITH WATER OR JUICE BETWEEN MEALS SOLD: 02/03/2021 [facility] ferrous gluconate 324 MG Oral Tablet Ferrous Gluconate 324 (38 Fe) MG Ferrous Gluconate 324 (38 Fe) MG 01/31/2021 12:00:00 AM EDT active Ferrous Gluconate 324 (38 Fe) MG eCW1 ([facility]) ferrous gluconate 324 MG Oral Tablet Ferrous Gluconate 324 (38 Fe) MG Ferrous Gluconate 324 (38 Fe) MG 01/31/2021 12:00:00 AM EDT active Ferrous Gluconate 324 (38 Fe) MG eCW1 ([facility]) ferrous gluconate 324 MG Oral Tablet Ferrous Gluconate 324 (38 Fe) MG Ferrous Gluconate 324 (38 Fe) MG 01/31/2021 12:00:00 AM EDT active Ferrous Gluconate 324 (38 Fe) MG eCW1 ([facility]) ferrous gluconate 324 MG Oral Tablet Ferrous Gluconate 324 (38 Fe) MG Ferrous Gluconate 324 (38 Fe) MG 01/31/2021 12:00:00 AM EDT active Ferrous Gluconate 324 (38 Fe) MG eCW1 ([facility]) ferrous gluconate 324 MG Oral Tablet Ferrous Gluconate 324 (38 Fe) MG Ferrous Gluconate 324 (38 Fe) MG 01/31/2021 12:00:00 AM EDT active Ferrous Gluconate 324 (38 Fe) MG eCW1 ([facility]) 324 mg (38 mg iron) 01/31/2021 12:00:00 AM EDT tablet 30 TAKE ONE TABLET BY MOUTH EVERY DAY WITH WATER OR JUICE BETWEEN MEALS TAKE ONE TABLET BY MOUTH EVERY DAY WITH WATER OR JUICE BETWEEN MEALS SOLD: 03/07/2021 [facility] ferrous gluconate 324 MG Oral Tablet Ferrous Gluconate 324 (38 Fe) MG Ferrous Gluconate 324 (38 Fe) MG 01/31/2021 12:00:00 AM EDT active Ferrous Gluconate 324 (38 Fe) MG eCW1 ([facility]) buspirone hydrochloride 10 MG Oral Tablet BUSPIRONE HCL 08/01/2020 12:00:00 AM EST tablet 60 TAKE ONE TABLET BY MOUTH TWI CE A DAY TAKE ONE TABLET BY MOUTH TWICE A DAY SOLD: 08/02/2020 [facility] 75 mg 08/01/2020 12:00:00 AM EST capsule,extended releas e 24hr 90 TAKE ONE CAPSULE BY MOUTH EVERY DAY WITH FOOD TAKE ONE CAPSULE BY MOUTH EVERY DAY WITH FOOD SOLD: 08/02/2020 [facility] 24 HR venlafaxine 75 MG Extended Release Oral Capsule [Effexor] Effexor XR 75 MG Effexor XR 75 MG 07/30/2020 12:00:00 AM EST 1.0 {capsule_with_fo od} suspended Effexor XR 75 MG eCW1 ([facility]) 24 HR venlafaxine 75 MG Extended Release Oral Capsule [Effexor] Effexor XR 75 MG Effexor XR 75 MG 07/30/2020 12:00:00 AM EST 1.0 {capsule_with_fo od} active Effexor XR 75 MG eCW1 ([facility]) buspirone hydrochloride 10 MG Oral Tablet busPIRone HC l 10 MG busPIRone HCl 10 MG 07/30/2020 12:00:00 AM EST 1.0 {tablet} suspe nded busPIRone HCl 10 MG eCW1 ([facility]) 24 HR venlafaxine 75 MG Extended Release Oral Capsule [Effexor] Effexor XR 75 MG Effexor XR 75 MG 07/30/2020 12:00:00 AM EST 1.0 {capsule_with_fo od} suspended Effexor XR 75 MG eCW1 ([facility]) 24 HR venlafaxine 75 MG Extended Release Oral Capsule [Effexor] Effexor XR 75 MG Effexor XR 75 MG 07/30/2020 12:00:00 AM EST 1.0 {capsule_with_fo od} suspended Effexor XR 75 MG eCW1 ([facility]) 24 HR venlafaxine 75 MG Extended Release Oral Capsule [Effexor] Effexor XR 75 MG Effexor XR 75 MG 07/30/2020 12:00:00 AM EST 1.0 {capsule_with_fo od} suspended Effexor XR 75 MG eCW1 ([facility]) buspirone hydrochloride 10 MG Oral Tablet busPIRone HC l 10 MG busPIRone HCl 10 MG 07/30/2020 12:00:00 AM EST 1.0 {tablet} suspe nded busPIRone HCl 10 MG eCW1 ([facility]) buspirone hydrochloride 10 MG Oral Tablet busPIRone HC l 10 MG busPIRone HCl 10 MG 07/30/2020 12:00:00 AM EST 1.0 {tablet} suspe nded busPIRone HCl 10 MG eCW1 ([facility]) buspirone hydrochloride 10 MG Oral Tablet busPIRone HC l 10 MG busPIRone HCl 10 MG 07/30/2020 12:00:00 AM EST 1.0 {tablet} suspe nded busPIRone HCl 10 MG eCW1 ([facility]) buspirone hydrochloride 10 MG Oral Tablet BusPIRone HC l 10 MG BusPIRone HCl 10 MG 07/30/2020 12:00:00 AM EST 1.0 {tablet} suspe nded BusPIRone HCl 10 MG eCW1 ([facility]) 24 HR venlafaxine 75 MG Extended Release Oral Capsule [Effexor] Effexor XR 75 MG Effexor XR 75 MG 07/30/2020 12:00:00 AM EST 1.0 {capsule_with_fo od} suspended Effexor XR 75 MG eCW1 ([facility]) 24 HR venlafaxine 75 MG Extended Release Oral Capsule [Effexor] Effexor XR 75 MG Effexor XR 75 MG 07/30/2020 12:00:00 AM EST 1.0 {capsule_with_fo od} suspended Effexor XR 75 MG eCW1 ([facility]) buspirone hydrochloride 10 MG Oral Tablet busPIRone HC l 10 MG busPIRone HCl 10 MG 07/30/2020 12:00:00 AM EST 1.0 {tablet} suspe nded busPIRone HCl 10 MG eCW1 ([facility]) 24 HR venlafaxine 75 MG Extended Release Oral Capsule [Effexor] Effexor XR 75 MG Effexor XR 75 MG 07/30/2020 12:00:00 AM EST 1.0 {capsule_with_fo od} suspended Effexor XR 75 MG eCW1 ([facility]) buspirone hydrochloride 10 MG Oral Tablet BusPIRone HC l 10 MG BusPIRone HCl 10 MG 07/30/2020 12:00:00 AM EST 1.0 {tablet} activ e BusPIRone HCl 10 MG eCW1 ([facility]) buspirone hydrochloride 10 MG Oral Tablet busPIRone HC l 10 MG busPIRone HCl 10 MG 07/30/2020 12:00:00 AM EST 1.0 {tablet} suspe nded busPIRone HCl 10 MG eCW1 ([facility]) 24 HR venlafaxine 75 MG Extended Release Oral Capsule [Effexor] Effexor XR 75 MG Effexor XR 75 MG 07/30/2020 12:00:00 AM EST 1.0 {capsule_with_fo od} suspended Effexor XR 75 MG eCW1 ([facility]) buspirone hydrochloride 10 MG Oral Tablet busPIRone HC l 10 MG busPIRone HCl 10 MG 07/30/2020 12:00:00 AM EST 1.0 {tablet} suspe nded busPIRone HCl 10 MG eCW1 ([facility]) buspirone hydrochloride 10 MG Oral Tablet busPIRone HC l 10 MG busPIRone HCl 10 MG 07/30/2020 12:00:00 AM EST 1.0 {tablet} suspe nded busPIRone HCl 10 MG eCW1 ([facility]) 24 HR venlafaxine 75 MG Extended Release Oral Capsule [Effexor] Effexor XR 75 MG Effexor XR 75 MG 07/30/2020 12:00:00 AM EST 1.0 {capsule_with_fo od} suspended Effexor XR 75 MG eCW1 ([facility]) buspirone hydrochloride 10 MG Oral Tablet busPIRone HC l 10 MG busPIRone HCl 10 MG 07/30/2020 12:00:00 AM EST 1.0 {tablet} suspe nded busPIRone HCl 10 MG eCW1 ([facility]) 24 HR venlafaxine 75 MG Extended Release Oral Capsule [Effexor] Effexor XR 75 MG Effexor XR 75 MG 07/30/2020 12:00:00 AM EST 1.0 {capsule_with_fo od} suspended Effexor XR 75 MG eCW1 ([facility]) buspirone hydrochloride 10 MG Oral Tablet busPIRone HC l 10 MG busPIRone HCl 10 MG 07/30/2020 12:00:00 AM EST 1.0 {tablet} suspe nded busPIRone HCl 10 MG eCW1 ([facility]) buspirone hydrochloride 10 MG Oral Tablet busPIRone HC l 10 MG busPIRone HCl 10 MG 07/30/2020 12:00:00 AM EST 1.0 {tablet} suspe nded busPIRone HCl 10 MG eCW1 ([facility]) 24 HR venlafaxine 75 MG Extended Release Oral Capsule [Effexor] Effexor XR 75 MG Effexor XR 75 MG 07/30/2020 12:00:00 AM EST 1.0 {capsule_with_fo od} suspended Effexor XR 75 MG eCW1 ([facility]) 24 HR venlafaxine 75 MG Extended Release Oral Capsule [Effexor] Effexor XR 75 MG Effexor XR 75 MG 07/30/2020 12:00:00 AM EST 1.0 {capsule_with_fo od} active Effexor XR 75 MG eCW1 ([facility]) 24 HR venlafaxine 75 MG Extended Release Oral Capsule [Effexor] Effexor XR 75 MG Effexor XR 75 MG 07/30/2020 12:00:00 AM EST 1.0 {capsule_with_fo od} suspended Effexor XR 75 MG eCW1 ([facility]) buspirone hydrochloride 10 MG Oral Tablet BusPIRone HC l 10 MG BusPIRone HCl 10 MG 07/30/2020 12:00:00 AM EST 1.0 {tablet} activ e BusPIRone HCl 10 MG eCW1 ([facility]) 24 HR venlafaxine 75 MG Extended Release Oral Capsule [Effexor] Effexor XR 75 MG Effexor XR 75 MG 07/30/2020 12:00:00 AM EST 1.0 {capsule_with_fo od} suspended Effexor XR 75 MG eCW1 ([facility]) buspirone hydrochloride 10 MG Oral Tablet BusPIRone HC l 10 MG BusPIRone HCl 10 MG 07/30/2020 12:00:00 AM EST 1.0 {tablet} suspe nded BusPIRone HCl 10 MG eCW1 ([facility]) 37.5 mg 07/27/2020 12:00:00 AM EST capsule,extended releas e 24hr 30 TAKE ONE CAPSULE BY MOUTH EVERY DAY WITH FOOD TAKE ONE CAPSULE BY MOUTH EVERY DAY WITH FOOD SOLD: 07/28/2020 [facility] buspirone hydrochloride 5 MG Oral Tablet BUSPIRONE HCL 07/27/2020 12:00:00 AM EST tablet 60 TAKE ONE TABLET BY MOUTH TWI CE A DAY TAKE ONE TABLET BY MOUTH TWICE A DAY SOLD: 07/28/2020 [facility] buspirone hydrochloride 10 MG Oral Tablet BUSPIRONE HCL 02/24/2020 12:00:00 AM EDT tablet 60 TAKE ONE TABLET BY MOUTH TWI CE A DAY TAKE ONE TABLET BY MOUTH TWICE A DAY SOLD: 04/25/2020 [facility] 75 mg 02/24/2020 12:00:00 AM EDT capsule,extended releas e 24hr 30 TAKE ONE CAPSULE BY MOUTH EVERY DAY TAKE ONE CAPSULE BY MOUTH EVERY DAY SOLD: 04/25/2020 [facility] buspirone hydrochloride 10 MG Oral Tablet BUSPIRONE HCL 02/24/2020 12:00:00 AM EDT tablet 60 TAKE ONE TABLET BY MOUTH TWI CE A DAY TAKE ONE TABLET BY MOUTH TWICE A DAY SOLD: 06/23/2020 [facility] buspirone hydrochloride 10 MG Oral Tablet BUSPIRONE HCL 02/24/2020 12:00:00 AM EDT tablet 60 TAKE ONE TABLET BY MOUTH TWI CE A DAY TAKE ONE TABLET BY MOUTH TWICE A DAY SOLD: 05/27/2020 [facility] buspirone hydrochloride 10 MG Oral Tablet BUSPIRONE HCL 02/24/2020 12:00:00 AM EDT tablet 60 TAKE ONE TABLET BY MOUTH TWI CE A DAY TAKE ONE TABLET BY MOUTH TWICE A DAY SOLD: 03/25/2020 [facility] 75 mg 02/24/2020 12:00:00 AM EDT capsule,extended releas e 24hr 30 TAKE ONE CAPSULE BY MOUTH EVERY DAY TAKE ONE CAPSULE BY MOUTH EVERY DAY SOLD: 05/27/2020 [facility] 75 mg 02/24/2020 12:00:00 AM EDT capsule,extended releas e 24hr 30 TAKE ONE CAPSULE BY MOUTH EVERY DAY TAKE ONE CAPSULE BY MOUTH EVERY DAY SOLD: 03/25/2020 [facility] 75 mg 02/24/2020 12:00:00 AM EDT capsule,extended releas e 24hr 30 TAKE ONE CAPSULE BY MOUTH EVERY DAY TAKE ONE CAPSULE BY MOUTH EVERY DAY SOLD: 06/23/2020 [facility] Insurance Providers Payer name Policy type / Coverage type Policy ID Covered green party ID Covered green party's relationship to huber Policy Huber Plan Information TASIA [id number] MEDICAID [id number] SP [id number] TASIA [id number] MEDICAID [id number] SP [id number] SELF PAY UNAVAILABLE SP UNAVAILA BLE SELF PAY ONLY UNAVAILABLE SP UNAV AILABLE [facility] [id number] [facility] [id number] Self [facility] [id number] SP [id number] [facility] [id number] SP [id number] [facility] [id number] SP [id number] [facility] [id number] S [id number] Problems, Conditions, and Diagnoses Code Display Name Description Problem Type Effective Dates Data Source(s) Z34.80 care Supervision of other normal P brianm 09/22/2020 12:00:00 AM EDT eCW1 ([facility]) F32.9 [id number] Depression Problem 07/26/2020 12:00:00 AM ES T eCW1 ([facility]) Surgeries/Procedures Procedure Description Date Indications Data Source(s) INFLUENZA VIRUS VACC SPLIT PRSRV FREE 3 YRS/> IM 04/06 12:00:00 AM EDT eCW1 ([facility]) TDAP VACCINE 7/> YR IM 03/09/2021 12:00:00 AM EDT eCW1 ([facility]) Results ID Date Data Source GROUP B STREP CULTURE 04/07/2021 12:00:00 AM EDT eCW1 ([facility]) Name Value Range Interpretation Code Description Data [place] rce(s) Supporting Document(s) GROUP B STREP CULTURE eCW1 ([facility]) Procedure Social History Code Duration Value Status Description Data Source(s ) Smoking 04/19/2021 12:00:00 AM EDT Former Smoker completed Former Smoker eCW1 ([facility]) Smoking 04/04/2021 12:00:00 AM EDT Former Smoker completed Former Smoker eCW1 ([facility]) Smoking 03/22/2021 12:00:00 AM EDT Former Smoker completed Former Smoker eCW1 ([facility]) Smoking 03/22/2021 12:00:00 AM EDT Former Smoker completed Former Smoker eCW1 ([facility]) Smoking 03/01/2021 12:00:00 AM EDT Former Smoker completed Former Smoker eCW1 ([facility]) Smoking 02/14/2021 12:00:00 AM EDT Former Smoker completed Former Smoker eCW1 ([facility]) Smoking 01/24/2021 12:00:00 AM EDT Former Smoker completed Former Smoker eCW1 ([facility]) Smoking 01/24/2021 12:00:00 AM EDT Former Smoker completed Former Smoker eCW1 ([facility]) Smoking 12/27/2020 12:00:00 AM EDT Former Smoker completed Former Smoker eCW1 ([facility]) Smoking 11/29/2020 12:00:00 AM EDT Former Smoker completed Former Smoker eCW1 ([facility]) Smoking 11/29/2020 12:00:00 AM EDT Former Smoker completed Former Smoker eCW1 ([facility]) Smoking 10/21/2020 12:00:00 AM EDT Former Smoker completed Former Smoker eCW1 ([facility]) Smoking 09/27/2020 12:00:00 AM EDT Former Smoker completed Former Smoker eCW1 ([facility]) Vital Signs ID Date Data Source UNK Name Value Range Interpretation Code Description Data Source(s) Body weight 167.8 [lb_av] 167.8 [lb_av] eCW1 ([facility]) Body mass index (BMI) [Ratio] 26.281 kg/m2 26.2 81 kg/m2 W1 ([facility]) Systolic blood pressure 102 mm[Hg] 102 mm[Hg] e CW1 ([facility]) Diastolic blood pressure 68 mm[Hg] 68 mm[Hg] eCW1 ([facility]) Body weight 76.11 kg 76.11 kg eCW1 ([facility]) Body height 67 [in_i] 67 [in_i] eCW1 ([facility]) Body weight 165 [lb_av] 165 [lb_av] eCW1 ([facility]) Body weight 74.84 kg 74.84 kg eCW1 ([facility]) Body height 67 [in_i] 67 [in_i] eCW1 ([facility]) Body mass index (BMI) [Ratio] 25.843 kg/m2 25.8 43 kg/m2 eCW1 ([facility]) Systolic blood pressure 110 mm[Hg] 110 mm[Hg] e CW1 ([facility]) Diastolic blood pressure 56 mm[Hg] 56 mm[Hg] eCW1 ([facility]) Body weight 164.4 [lb_av] 164.4 [lb_av] eCW1 ([facility]) Body weight 74.57 kg 74.57 kg eCW1 ([facility]) Body height 67 [in_i] 67 [in_i] eCW1 ([facility]) Body mass index (BMI) [Ratio] 25.749 kg/m2 25.7 49 kg/m2 eCW1 ([facility]) Systolic blood pressure 100 mm[Hg] 100 mm[Hg] e CW1 ([facility]) Diastolic blood pressure 60 mm[Hg] 60 mm[Hg] eCW1 ([facility]) Body weight 161 [lb_av] 161 [lb_av] eCW1 ([facility]) Body weight 73.03 kg 73.03 kg eCW1 ([facility]) Body height 67 [in_i] 67 [in_i] eCW1 ([facility]) Body mass index (BMI) [Ratio] 25.21 kg/m2 25.21 kg/m2 eCW1 ([facility]) Systolic blood pressure 104 mm[Hg] 104 mm[Hg] e CW1 ([facility]) Diastolic blood pressure 58 mm[Hg] 58 mm[Hg] eCW1 ([facility]) Body weight 162.8 [lb_av] 162.8 [lb_av] eCW1 ([facility]) Body weight 73.84 kg 73.84 kg eCW1 (Formerly [facility]) Body height 67 [in_i] 67 [in_i] eCW1 ([facility]ly [facility]) Body mass index (BMI) [Ratio] 25.498 kg/m2 25.4 98 kg/m2 eCW1 ([facility]) Systolic blood pressure 114 mm[Hg] 114 mm[Hg] e CW1 ([facility]) Diastolic blood pressure 66 mm[Hg] 66 mm[Hg] eCW1 ([facility]) Body weight 158 [lb_av] 158 [lb_av] eCW1 ([facility]) Body weight 71.67 kg 71.67 kg eCW1 ([facility]) Body height 67 [in_i] 67 [in_i] eCW1 ([facility]) Body mass index (BMI) [Ratio] 24.746 kg/m2 24.7 46 kg/m2 eCW1 ([facility]) Systolic blood pressure 100 mm[Hg] 100 mm[Hg] e CW1 ([facility]) Diastolic blood pressure 60 mm[Hg] 60 mm[Hg] eCW1 ([facility]) Body weight 151.2 [lb_av] 151.2 [lb_av] eCW1 ([facility]) Body height 67 [in_i] 67 [in_i] eCW1 ([facility]) Body mass index (BMI) [Ratio] 23.681 kg/m2 23.6 81 kg/m2 eCW1 ([facility]) Systolic blood pressure 114 mm[Hg] 114 mm[Hg] e CW1 ([facility]) Diastolic blood pressure 70 mm[Hg] 70 mm[Hg] eCW1 ([facility]) Body weight 148.4 [lb_av] 148.4 [lb_av] eCW1 ([facility]) Body height 67 [in_i] 67 [in_i] eCW1 ([facility]) Body mass index (BMI) [Ratio] 23.243 kg/m2 23.2 43 kg/m2 eCW1 ([facility]) Systolic blood pressure 118 mm[Hg] 118 mm[Hg] e CW1 ([facility]) Diastolic blood pressure 60 mm[Hg] 60 mm[Hg] eCW1 ([facility]) Body weight 146.0 [lb_av] 146.0 [lb_av] eCW1 ([facility]) Body weight 66.22 kg 66.22 kg eCW1 ([facility]) Body height 67 [in_i] 67 [in_i] eCW1 ([facility]) Body mass index (BMI) [Ratio] 22.867 kg/m2 22.8 67 kg/m2 eCW1 ([facility]) Systolic blood pressure 110 mm[Hg] 110 mm[Hg] e CW1 ([facility]) Diastolic blood pressure 64 mm[Hg] 64 mm[Hg] eCW1 ([facility]) Body weight 146.8 [lb_av] 146.8 [lb_av] eCW1 ([facility]) Body height 67 [in_i] 67 [in_i] eCW1 ([facility]) Body weight 66.59 kg 66.59 kg eCW1 ([facility]) Body mass index (BMI) [Ratio] 22.992 kg/m2 22.9 92 kg/m2 eCW1 ([facility]) Systolic blood pressure 106 mm[Hg] 106 mm[Hg] e CW1 ([facility]) Diastolic blood pressure 62 mm[Hg] 62 mm[Hg] eCW1 ([facility]) Patient Treatment Plan of Care Planned Activity Planned Date Details Description Data Source (s) ferrous gluconate 324 MG Oral Tablet 01/31/2021 12:00:00 AM EDT eCW1 ([facility]) buspirone hydrochloride 10 MG Oral Tablet 07/30/2020 12:00:00 AM ES T eCW1 ([facility]) 24 HR venlafaxine 75 MG Extended Release Oral Capsule [Effexor] 07/30/2020 12:00:00 AM EST eCW1 ([facility]) buspirone hydrochloride 10 MG Oral Tablet 07/30/2020 12:00:00 AM ES T eCW1 ([facility]) 24 HR venlafaxine 75 MG Extended Release Oral Capsule [Effexor] 07/30/2020 12:00:00 AM EST eCW1 ([facility])
[2021-05-02 01:24] LABS: HEMATOCRIT 33.2 % (36.0-47.0); HEMOGLOBIN 11.2 g/dl (12.0-15.5); MEAN CORPUSCULAR HEMOGLOBIN 32.1 pg (27.0-33.0); MEAN CORPUSCULAR HGB CONC 33.7 g/dl (32.0-36.5); MEAN CORPUSCULAR VOLUME 95.1 fl (80.0-96.0); PLATELET COUNT, AUTOMATED 207 10^3/uL (150-450); RED BLOOD COUNT 3.49 10^6/uL (4.00-5.40); WHITE BLOOD COUNT 9.5 10^3/uL (4.0-10.0)
[2021-05-02] MEDS ORDERED: OXYTOCIN 30 UNITS IN 0.9% NaCl 500ML IV BAG (J2590) As Ordered ONE (02:19)
[2021-05-02] MEDS ORDERED: DOCUSATE SODIUM 100MG CAPSULE PO PRN (04:10)
[2021-05-02] MEDS ORDERED: MEASLES,MUMPS,RUBELLA VACCINE INJ (MMR-II) (90707) SC SCH (04:10)
[2021-05-02] MEDS ORDERED: OXYTOCIN DRIP 30 UNITS in IV 1 EA IV SCH (04:10)
[2021-05-02] MEDS ORDERED: RHOGAM 300 MCG (1500 IU) INJ (J2790) IM SCH (04:10)
[2021-05-02] MEDS ORDERED: ACETAMINOPHEN TAB 650MG DOSE (2X325MG) PO PRN (04:10)
[2021-05-02] MEDS ORDERED: METHYLERGONOVINE MALEATE 0.2 MG TAB PO PRN (04:10)
[2021-05-02] MEDS ORDERED: IBUPROFEN 600MG TAB PO PRN (04:10)
--- NOTE | 2021-05-02 06:41 | HPE ---
HISTORY AND PHYSICAL DATE OF ADMISSION: 05/02/2021 HISTORY OF PRESENT ILLNESS: Nuvia is a 35-year-old female 3 para 2-0-0-2 with an EDC of 05/06/2021, EGA 39 and 3/7th weeks gestation. Patient presented to Labor and Delivery with complaint of contractions every 3 to 4 minutes. On evaluation, she was found to be in active labor with bulging membranes. At this point, the decision was made for admission. No bleeding. No leakage of fluid. Good movement. Her record was reviewed, blood type was O positive, rubella immune, hepatitis negative, HIV negative, GC and chlamydia negative. __ testing was within normal limits. OB HISTORY: Significant for two vaginal deliveries, the first delivery was a forceps assisted delivery in 2014 and then in 2017 she had a vacuum assisted delivery. The weight of the first infant was 8 pounds and 13 ounces, the second infant was 9 pounds, 2 ounces. PAST MEDICAL HISTORY: Denies. PAST SURGICAL HISTORY: Significant for two operative vaginal deliveries and she had a colposcopy x2 in 2015 and 2019. SOCIAL HISTORY: The patient is a former smoker, last smoked 5 to 10 years ago. She denies any alcohol. REVIEW OF SYSTEMS: Unremarkable. MEDICATIONS: vitamin. ALLERGIES: No known drug allergies. PHYSICAL EXAMINATION: Normal appearing female in no acute distress. Abdomen is soft, nontender and nondistended. Extremities: No cyanosis, clubbing or edema. Vaginal exam: 8 cm with bulging membranes, 100% effaced. The fetus had -3/-4 station. Tracing reviewed. Category 1tracing. Contractions every 3 to 4 minutes. ASSESSMENT: 1. Intrauterine at 39 and 3/7th weeks gestation. 2. Polyhydramnios. 3. Active labor. PLAN: Admit to Labor and Delivery. Routine labs sent. Pain management discussed. Patient opted for no pain meds at this point. Will continue to monitor. Anticipate delivery. cc: [facility]
[2021-05-02] MEDS: PRENATAL VITAMINS CHEWABLE TABLET PO SCH (07:36)
[2021-05-02] MEDS: IBUPROFEN 800 MG TAB PO PRN ×2 (07:37→16:02)
[2021-05-02] MEDS: ACETAMINOPHEN 500 MG TAB PO PRN ×2 (11:13→20:25)
[2021-05-03] MEDS: IBUPROFEN 800 MG TAB PO PRN ×2 (05:20→17:26)
[2021-05-03 06:00] VITALS: BP 108/63
[2021-05-03] MEDS: PRENATAL VITAMINS CHEWABLE TABLET PO SCH (08:14)
[2021-05-03] MEDS: ACETAMINOPHEN 500 MG TAB PO PRN ×2 (08:15→20:12)
--- NOTE | 2021-05-03 15:19 | IPNPDOC ---
Progress Note Date of Service: May 03, 2021 Day#: 1 Progress Note SUBJECT: Status post . She has been ambulating, voiding spontaneously with out issue and tolerating regular diet. Lochia decreasing/minimal. Pain is well- controlled. Denies headache, visual changes, right upper quadrant pain, shortness breath or chest pain. States she would like to restart her antidepressant; has had the plan of starting Zoloft 50 mg daily beginning shortly after delivery. OBJECTIVE: VITAL SIGNS: Within normal limits, afebrile. Alert and oriented times three. Abdomen: Fundus firm at U-2. Soft, NTTP. ASSESSMENT: Status post uncomplicated spontaneous vaginal delivery. Vitals within normal limits, afebrile, hemodynamically stable with no evidence of infection. PLAN: Discharge to home later today or tomorrow Tylenol and Motrin for pain. Prescription for Zoloft 50 mg daily entered Routine instructions/precautions reviewed. Routine PP visit in 6 weeks in clinic. VS, I&O, 24H, Fishbone Vital Signs/I&O Vital Signs Date Time Temp Pulse Resp B/P (MAP) Pulse Ox O2 Delivery O2 Flow Rate FiO2 05/03/21 06:00 97.5 76 16 108/63 (78) 98 Room Air ERICKA LANDRY DO May 03, 2021 15:19
[2021-05-03] MEDS ORDERED: SERT-141 PO (15:21)
[2021-05-03] MEDS: SERTRALINE HCL 50 MG TAB PO SCH (16:16)
[2021-05-03] MEDS ORDERED: CALCIUM CARBONATE 500 MG CHEW U/D PO PRN (17:30)
[2021-05-03 18:00] VITALS: BP 117/67
[2021-05-03 21:00] VITALS: BP 117/67
[2021-05-04] MEDS: IBUPROFEN 800 MG TAB PO PRN (05:31)
[2021-05-04 06:00] VITALS: BP 111/67
[2021-05-04] MEDS: SERTRALINE HCL 50 MG TAB PO SCH (07:52)
[2021-05-04] MEDS: PRENATAL VITAMINS CHEWABLE TABLET PO SCH (07:52)
[2021-05-04] MEDS: ACETAMINOPHEN 500 MG TAB PO PRN (07:52)
[2021-05-04] MEDS ORDERED: IBUP80TA PO (11:00)
[2021-05-04] MEDS ORDERED: ACET-683 PO (11:00)
== END 2021-05-04 13:35 | disposition home or self-care (01) | DRG 560 ==
LOC: M LDO 00:05 → M LDI 00:46 → M OBS 06:26
PROVIDERS: ADMIT Obstetrics & Gynecology; ATTEND Obstetrics & Gynecology
PROC: 10E0XZZ Delivery of Products of Conception, External Approach (ICD-10-PCS; principal; 2021-05-02)
PROC: 0KQM0ZZ Repair Perineum Muscle, Open Approach (ICD-10-PCS; 2021-05-02)
PROC: 10907ZC Drainage of Amniotic Fluid, Therapeutic from Products of Conception, Via Natural or Artificial Opening (ICD-10-PCS; 2021-05-02)
DX: O40.3XX0 Polyhydramnios, third trimester, not applicable or unspecified (principal); Z3A.39 39 weeks gestation of pregnancy; Z37.0 Single live birth; O70.1 Second degree perineal laceration during delivery

== ENCOUNTER → 2021-10-10 | Outpatient (REF) | payer OTHER ==
[~2021-10-10] MED LIST changes: +ACET-683 PO; +IBUP80TA PO; +SERT-141 PO
== END ==
LOC: M PLALAB 16:26
PROVIDERS: ATTEND Advanced Practice Midwife
DX: Z12.4 Encounter for screening for malignant neoplasm of cervix (principal)

== ENCOUNTER → 2022-08-09 | Outpatient (REF) | payer OTHER ==
[2022-08-09 17:32] LABS: BASO # 0.1 10^3/uL (0.0-0.2); BASO % 1.3 % (0.0-1.0); EOS # 0.3 10^3/uL (0.0-0.5); EOS % 6.1 % (0.0-3.0); HEMATOCRIT 38.3 % (36.0-47.0); LYMPH # 1.3 10^3/uL (1.5-5.0); LYMPH % 23.6 % (24.0-44.0); MEAN CORPUSCULAR HEMOGLOBIN 30.3 pg (27.0-33.0); MEAN CORPUSCULAR HGB CONC 31.3 g/dl (32.0-36.5); MEAN CORPUSCULAR VOLUME 96.7 fl (80.0-96.0); MONO # 0.4 10^3/uL (0.0-0.8); MONO % 7.7 % (2.0-8.0); NEUTROPHILS # 3.3 10^3/uL (1.5-8.5); NEUTROPHILS % 60.7 % (36.0-66.0); PLATELET COUNT, AUTOMATED 264 10^3/uL (150-450); RED BLOOD COUNT 3.96 10^6/uL (4.00-5.40); WHITE BLOOD COUNT 5.4 10^3/uL (4.0-10.0)
[2022-08-09 17:33] LABS: IRON (FE) 90 UG/DL (50-170)
[2022-08-09 17:35] LABS: ALBUMIN 4.2 G/DL (3.2-5.2); ALKALINE PHOSPHATASE 90 U/L (46-116); ALT/SGPT 24 U/L (7.0-40); BILIRUBIN,TOTAL 0.6 MG/DL (0.3-1.2); BLOOD UREA NITROGEN 16 MG/DL (9-23); CALCIUM LEVEL 9.6 MG/DL (8.5-10.1); CARBON DIOXIDE LEVEL 29 MMOL/L (20-31); CHLORIDE LEVEL 103 MMOL/L (98-107); CREATININE FOR GFR 0.76 MG/DL (0.55-1.30); FREE T4 1.17 NG/DL (0.89-1.76); GLOMERULAR FILTRATION RATE > 60.0 (>60); GLUCOSE, FASTING 80 MG/DL (60-100); POTASSIUM SERUM 4.4 MMOL/L (3.5-5.1); SODIUM LEVEL 139 MMOL/L (136-145); THYROID STIMULATING HORMONE 1.542 uIU/ML (0.55-4.78)
[2022-08-09 18:25] LABS: HEMOGLOBIN A1c 5.2 % (4.0-6.0)
[2022-08-09 19:07] LABS: AST/SGOT 30 U/L (<34); TOTAL PROTEIN 7.2 G/DL (5.7-8.2)
== END ==
LOC: M SFHCCLAY 10:40
PROVIDERS: ATTEND Family Medicine
DX: Z13.29 Encounter for screening for other suspected endocrine disorder (principal); Z13.1 Encounter for screening for diabetes mellitus; Z13.0 Encounter for screening for diseases of the blood and blood-forming organs and certain disorders involving the immune mechanism

== ENCOUNTER → 2023-11-06 | Outpatient (CLI) | payer OTHER | LOC: M WHC 14:12 | PROVIDERS: ATTEND Advanced Practice Midwife | DX: Z12.31 Encounter for screening mammogram for malignant neoplasm of breast (principal) ==

== ENCOUNTER → 2023-11-06 | Outpatient (REF) | payer OTHER | LOC: M SFHCWAGY 17:27 | PROVIDERS: ATTEND Advanced Practice Midwife | DX: Z12.4 Encounter for screening for malignant neoplasm of cervix (principal); R87.620 Atypical squamous cells of undetermined significance on cytologic smear of vagina (ASC-US) ==

== ENCOUNTER → 2024-03-07 | Outpatient (REF) | payer OTHER | LOC: M SFHCCLAY 12:29 | PROVIDERS: ATTEND Family Medicine | DX: O03.9 Complete or unspecified spontaneous abortion without complication (principal) ==

== ENCOUNTER → 2024-10-27 | Outpatient (REF) | payer OTHER ==
[2024-10-27 18:27] LABS: HEMATOCRIT 38.1 % (36.0-47.0); HEMOGLOBIN 11.7 g/dl (12.0-15.5); MEAN CORPUSCULAR HEMOGLOBIN 29.5 pg (27.0-33.0); MEAN CORPUSCULAR HGB CONC 30.7 g/dl (32.0-36.5); PLATELET COUNT, AUTOMATED 306 10^3/uL (150-450); RED BLOOD COUNT 3.97 10^6/uL (4.00-5.40); WHITE BLOOD COUNT 5.1 10^3/uL (4.0-10.0)
[2024-10-27 18:34] LABS: THYROID STIMULATING HORMONE 1.641 uIU/ML (0.55-4.78)
[2024-10-27 18:35] LABS: ALBUMIN 3.9 G/DL (3.2-5.2); ALKALINE PHOSPHATASE 56 U/L (35-104); ALT/SGPT 16 U/L (7.0-40); AST/SGOT 25 U/L (<34); BILIRUBIN,TOTAL 0.4 MG/DL (0.3-1.2); BLOOD UREA NITROGEN 13 MG/DL (9-23); CALCIUM LEVEL 9.1 MG/DL (8.5-10.1); CARBON DIOXIDE LEVEL 28 MMOL/L (20-31); CHLORIDE LEVEL 104 MMOL/L (98-107); CREATININE FOR GFR 0.83 MG/DL (0.55-1.30); FREE T4 1.22 NG/DL (0.89-1.76); GLOMERULAR FILTRATION RATE > 90.0 (>58); GLUCOSE, FASTING 80 MG/DL (60-100); IRON (FE) 38 UG/DL (50-170); MAGNESIUM LEVEL 2.2 MG/DL (1.8-2.4); POTASSIUM SERUM 4.1 MMOL/L (3.5-5.1); SODIUM LEVEL 141 MMOL/L (136-145); TOTAL PROTEIN 7.4 G/DL (5.7-8.2)
[2024-10-27 18:36] LABS: VITAMIN B12 LEVEL 888 PG/ML (211-911)
[2024-10-27 18:37] LABS: FOLATE 23.57 NG/ML (>5.4)
[2024-10-27 18:39] LABS: TOTAL T3 124.1 NG/DL (60.0-181.0)
== END ==
LOC: M SFHCCLAY 11:53
PROVIDERS: ATTEND Family Medicine
DX: Z34.92 Encounter for supervision of normal pregnancy, unspecified, second trimester (principal)

== ENCOUNTER → 2025-02-19 | Outpatient (REF) | payer SELFPAY, OTHER ==
[~2025-02-19] MED LIST changes: -IBUP-1022 PO; +IBUP600T42 PO
[2025-02-19 18:27] LABS: PLATELET COUNT, AUTOMATED 268 10^3/uL (150-450)
== END ==
LOC: M SFHCCLAY 13:30
PROVIDERS: ATTEND Family Medicine
DX: D50.9 Iron deficiency anemia, unspecified (principal)